=== PATIENT | female | born 1955 | race Caucasian/White ===

== ENCOUNTER 2016-04-02 10:13 | Emergency (ER) | payer SELFPAY ==
[2016-04-02 10:37] VITALS: BP 164/90
[2016-04-02] MEDS ORDERED: METOCLOPRAMIDE HCL 5 MG TABLET PO ONE (11:05)
[2016-04-02] MEDS ORDERED: SUCRALFATE 1 GM TABLET PO ONE (11:10)
[2016-04-02] MEDS ORDERED: HYOSCYAMINE SULFATE 0.125 MG TAB.SUBL SL ONE (11:15)
[2016-04-02] MEDS ORDERED: 0.9 % SODIUM CHLORIDE 100 ML IV ONE (11:28)
[2016-04-02] MEDS ORDERED: PANTOPRAZOLE SODIUM INJ. 40 MG VIAL ONE (11:28)
[2016-04-02 11:44] LABS: BASOPHILS % 0.3 (0.0-1.5); LYMPHOCYTES # 2.3 # k/uL (0.6-4.0); MEAN CORPUSCULAR HEMOGLOBIN 27.8 pg (28.0-34.0); MONOCYTES # 0.3 # k/uL (0.0-0.9); MONOCYTES % 4.2 % (0.0-11.0); NEUTROPHILS # 3.7 # k/uL (1.4-7.7)
[2016-04-02] MEDS ORDERED: PANTOPRAZOLE SODIUM 40 MG in 0.9 % SODIUM CHLORIDE 50 ML IV SCH (12:00)
[2016-04-02 12:07] LABS: eGFR (African) > 60; eGFR (Non-African) > 60
--- NOTE | 2016-04-02 13:22 | ED Physician Documentation ---
GI Bleed - HISTORIAN Historian: patient - HPI Stated Complaint: Acid Reflux Chief Complaint: Abdominal Pain Additional Information: GERD problems, on no antacid Onset: hours (2) Timing: sudden onset Severity: moderate Further Comments: no - Associated Symptoms Abdominal Pain: burning, epigastric Other Related Symptoms: other (esophageal reflux) - ROS CONST: no problems SKIN/LYMPH: denies: leg swelling, rash, swollen glands, ankle swelling CVS/RESP: none EYES/ENT: denies: problems with vision, sore throat, nose bleed MS: none NEURO/PSYCH: denies: headache, lost feeling, confusion, anxiety, depression, loss of power - PAST HX Past History: other (GERD) Surgeries/Procedures: none Allergies/Adverse Reactions: Allergies Allergy/AdvReac Type Severity Reaction Status Date / Time acetaminophen Allergy Unknown Verified 04/02/16 10:30 aspirin Allergy Unknown Verified 04/02/16 10:30 ciprofloxacin [From Cipro] Allergy Unknown Verified 04/02/16 10:30 ciprofloxacin HCl Allergy Unknown Verified 04/02/16 10:30 [From Cipro] codeine Allergy Unknown Verified 04/02/16 10:30 ibuprofen Allergy Unknown Verified 04/02/16 10:30 ketorolac tromethamine Allergy Unknown Verified 04/02/16 10:30 [From Toradol] metronidazole Allergy Unknown Verified 04/02/16 10:30 Neuromuscular Blockers, Allergy Unknown Verified 04/02/16 10:30 Steroidal [Steroidal Neuromuscular Blockers] oxycodone [Oxycodone] Allergy Unknown Verified 04/02/16 10:30 Penicillins Allergy Unknown Verified 04/02/16 10:30 pentazocine Allergy Unknown Verified 04/02/16 10:30 propoxyphene Allergy Unknown Verified 04/02/16 10:30 Home Medications: Ambulatory Orders Medication Instructions Recorded Baclofen [Liorasal] 20 mg PO QID 08/13/13 Diphenhydramine HCl [Hgidm-Q-Srmz] 25 mg PO PRN PRN 08/13/13 Magnesium Hydroxide [Milk of 30 ml PO AM 08/13/13 Magnesia] Morphine Sulfate [Morphine Sulfate 30 mg PO DAILY 08/13/13 ER] QUEtiapine FUMARATE [Seroquel] 100 mg PO QD 08/13/13 Quetiapine Fumarate [Seroquel] 50 mg PO DAILY 08/13/13 oxyCODONE HCL [Oxycontin] 10 mg PO BID 08/13/13 - SOCIAL HX Smoking History: cigarettes Alcohol Use: none Drug Use: none - FAMILY HX Family History: none - VITAL SIGNS Vital Signs: Vital Signs Temp Pulse Resp BP Pulse Ox 97.1 F L 85 18 164/90 98 04/02/16 10:15 04/02/16 10:15 04/02/16 10:15 04/02/16 10:15 04/02/16 10:15 - REVIEWED ASSESSMENTS Nursing Assessment Reviewed: Yes Vitals Reviewed: Yes Progress - Results/Orders Results/Orders: bc, cmp, amylase ordered - Progress Progress: pt. given carafate 1 gram p.o., reglan 10 mg p.o., hyoscyamine 0.25 mg p.o., protonix 40 mg iv in er, significant improvement in symptoms Critical Care Note - Critical Care Note Total Time (mins): 0 ED Results Lab/Radiology - Lab Results Lab Results: Lab Results 04/02/16 04/02/16 11:40 11:40 WBC 7.00 K/ul K/ul (4.00-12.00) RBC 4.36 M/ul M/ul (3.90-5.20) Hgb 12.1 g/dL g/dL (12.0-16.0) Hct 39.6 % % (34.5-46.5) MCV 90.8 fl fl (80.0-100.0) MCH 27.8 pg L pg (28.0-34.0) MCHC 30.6 g/dL g/dL (30.0-36.0) RDW 14.0 % % (11.3-14.3) Plt Count 181 K/mm3 K/mm3 (130-400) Neut % (Auto) 52.9 % % (39.0-79.0) Lymph % (Auto) 32.3 % % (16.0-50.0) Rock % (Auto) 4.2 % % (0.0-11.0) Eos % (Auto) 9.0 % H % (0.0-6.8) Baso % (Auto) 0.3 (0.0-1.5) Neut # 3.7 # k/uL # k/uL (1.4-7.7) Lymph # 2.3 # k/uL # k/uL (0.6-4.0) Rock # 0.3 # k/uL # k/uL (0.0-0.9) Eos # 0.6 # k/uL # k/uL (0.0-0.6) Baso # 0.0 # k/uL # k/uL (0.0-0.5) Reactive Lymphs % 1.4 % % (0.0-5.0) Reactive Lymphs # 0.1 # k/uL # k/uL (0.0-0.8) Sodium 149 mmol/L H mmol/L (136-145) Potassium 3.5 mmol/L mmol/L (3.5-5.0) Chloride 108 mmol/L mmol/L (98-110) Carbon Dioxide 19 mmol/L L mmol/L (20-32) BUN 9 mg/dL L mg/dL (10-26) Creatinine 0.8 mg/dL mg/dL (0.4-1.5) Estimated Creat Clear 132 Est GFR ( Amer) > 60 (60 - ) Est GFR (Non-Af Amer) > 60 (60 - ) Glucose 123 mg/dL H mg/dL (70-99) Calcium 9.0 mg/dL mg/dL (8.5-10.5) Total Bilirubin 0.1 mg/dL L mg/dL (0.2-1.2) AST 20 U/L U/L (0-41) ALT 24 U/L U/L (0-45) Alkaline Phosphatase 113 U/L U/L (46-116) Total Protein 6.9 g/dL g/dL (6.0-8.5) Albumin 4.1 g/dL g/dL (3.0-5.5) Amylase 49 U/L U/L (20-104) - Radiology Radiology Impressions: none ordered - Orders Orders: ED Orders Category Date Time Status Place Saline Lock/IV Now Care 04/02/16 11:05 Active AMYLASE Routine Lab 04/02/16 11:40 Completed CBC/PLATELET/DIFF Routine Lab 04/02/16 11:40 Completed CMP Routine Lab 04/02/16 11:40 Completed 0.9 % Sodium Chloride [Sodium Chloride] 100 ml Med 04/02/16 11:28 Discontinued IV .STK-MED Hyoscyamine Sulfate [Oscimin Sl] Med 04/02/16 11:15 Discontinued 0.25 mg SL NOW ONE Metoclopramide HCl [Reglan] Med 04/02/16 11:05 Discontinued 10 mg PO NOW ONE Pantoprazole Sodium [Protonix] Med 04/02/16 11:28 Discontinued 40 mg .ROUTE .STK-MED ONE Pantoprazole Sodium [Protonix] 40 mg Med 04/02/16 12:00 Ordered 0.9 % Sodium Chloride [Sodium Chloride] 50 ml IV DAILY Sucralfate [Carafate] Med 04/02/16 11:10 Discontinued 1 gm PO NOW ONE Abdominal Pain Physical Exam - Physical Exam General Appearance: alert, moderate distress EENT: eye inspection normal, ENT inspection normal, pharynx normal, no signs of dehydration, DANY, no nystagmus, TM's nml NECK: normal inspection, thyroid normal, supple RESPIRATORY: no resp distress, chest non-tender, breath sounds normal CVS: reg rate & rhythm, heart sounds normal, equal pulses, no murmur, no gallop , PMI nml ABDOMEN: soft, no organomegaly, normal bowel sounds, no abdominal bruit, tenderness (epigasdtrium) BACK: normal inspection, no CVA tenderness SKIN: warm/dry, normal color EXTREMITIES: non-tender, normal range of motion, no evidence of injury, no edema NEURO: oriented X3, CN's nml as tested, motor nml, sensation nml Vital Signs: Vital Signs Temp Pulse Resp BP Pulse Ox 97.1 F L 85 18 164/90 98 04/02/16 10:15 04/02/16 10:15 04/02/16 10:15 04/02/16 10:15 04/02/16 10:15 Discharge Clincal Impression: GERD (gastroesophageal reflux disease) Qualifiers: Esophagitis presence: with esophagitis Qualified Code(s): K21.0 - Gastro- esophageal reflux disease with esophagitis Home Medications: Ambulatory Orders Baclofen [Liorasal] 20 mg PO QID 08/13/13 Diphenhydramine HCl [Tdveb-O-Ycpo] 25 mg PO PRN PRN 08/13/13 Magnesium Hydroxide [Milk of Magnesia] 30 ml PO AM 08/13/13 Morphine Sulfate [Morphine Sulfate ER] 30 mg PO DAILY 08/13/13 QUEtiapine FUMARATE [Seroquel] 100 mg PO QD 08/13/13 Quetiapine Fumarate [Seroquel] 50 mg PO DAILY 08/13/13 oxyCODONE HCL [Oxycontin] 10 mg PO BID 08/13/13 Comments: Discharged to family in stable and improved condition with script for Nexium 40 mg p.o. daily, Carafate 1 gram p.o. ac, Reglan 10 mg p.o. q hs. 2 weeks of each prescribed. Condition: Stable Disposition: 01 HOME, SELF-CARE Decision to Admit: NO Decision Time: 12:25
== END 2016-04-02 13:00 | disposition home or self-care (01) ==
LOC: ED 10:13
DX: K21.9 Gastro-esophageal reflux disease without esophagitis (principal)
CPT/HCPCS: 80053; 82150; 85025; A9270; 99283; S1016